=== PATIENT | female | born 1995 | race Caucasian/White ===

== ENCOUNTER 2024-05-25 15:11 | Outpatient (CLI) | payer OTHER ==
--- NOTE | 2024-05-28 11:47 | Ultrasound Report ---
PROCEDURE: OB Anatomy Scan INDICATIONS: SUPERVISION OF OUTSIDE/PRIOR DATING DATA: Last menstrual period (LMP): 12/29/2023. LMP-based estimated date of delivery (CRAIG): 10/04/2024. First dating scan (date and location): 03/06/2024. Estimated date of delivery (CRAIG) from first dating scan: 10/04/2024. The below data below was generated using the working CRAIG of 10/04/2024 TECHNIQUE: Ultrasound of the gravid uterus was performed and recorded. COMPARISON: None. FINDINGS: General: A single live intrauterine gestation is present. Presentation: Transverse Placenta: Placental position is anterior without previa. Amniotic fluid index: 10.4 cm, 8.9 percentile for gestational age. heart rate: 153 beats per minute. Maternal cervical canal: 5.3 cm long; normal length is 2.5 cm or more. biometrics: Biparietal diameter: 4.7 cm, 20 week 1 day, 14 percentile Head circumference: 18.1 cm, 20 week 4 day, 16 percentile Abdominal circumference: 15.1 cm, 21 week 0 day, 18 percentile Femur length: 3.5 cm, 21 week 0 day, 33 percentile Estimated gestational age by working dates: 21 week 1 day Composite gestational age by current ultrasound: 20 week 3 day Estimated weight and percentile: 363.7 g, 18.9 percentile Measurement variability in biometric dating: +/- 10 days from 12-20 weeks gestation, +/- 2 weeks from 20-30 weeks gestation, +/- 3 weeks at 30 weeks gestation or more. Anatomic survey: Neuro: Ventricles are non-dilated at less than 10 mm. Cisterna magna is normal at 3-11 mm. Cerebel lum is normal in size and morphology. Nuchal skin fold: Normal at less than 6 mm between 14-20 weeks gestational age. Face: Nonvisualized facial profile Spine: No evidence for spina bifida. Heart: 4-chambered heart is present, with normal ventricular outflow tracts. Diaphragm: Diaphragm is intact. Stomach: Left-sided stomach is present. Kidneys: No hydronephrosis. Normal is less than 5 mm in 2nd trimester, less than 7 mm in 3rd trimester. Cord: 3-vessel cord has orthotopic insertion. Bladder: Normal in size. Extremities: All 4 extremities identified. Other: Not applicable. IMPRESSION: Single live intrauterine consistent with 20 week 3 day gestation by current ultrasound Nonvisualized facial profile due to position. Attention on follow-up. Remainder of the anatomic survey within normal limits Reviewed by: Ruddy Patel MD on 05/28/2024 10:45 AM [facility] Approved by: Ruddy Patel MD on 05/28/2024 10:45 AM PHAM Station ID: [id number]
== END 2024-05-25 15:12 | disposition home or self-care (01) ==
LOC: DI 15:11
PROVIDERS: ATTEND Nurse Practitioner Obstetrics & Gynecology
DX: Z34.02 Encounter for supervision of normal first pregnancy, second trimester (principal); Z36.89 Encounter for other specified antenatal screening